=== PATIENT | female | born 1975 | race Hispanic/Latino ===

== ENCOUNTER 2018-04-25 18:00 | Emergency (ER) | payer SELFPAY ==
--- NOTE | 2018-04-25 19:34 | ER ---
Nurse's Notes [facility] Name: Jenae Martinez Age: 43 yrs Sex: Female : 1975 Arrival Date: 04/25/2018 Time: 18:04 Bed 10 Private MD: None, None Diagnosis: Acute tonsillitis Presentation: 04/25 18:30 Presenting complaint: Patient states: sore throat for 2 days with fever, headache and la1 patchy exudate. Transition of care: patient was not received from another setting of care. Onset of symptoms was April 25, 2018. 18:30 Method Of Arrival: Ambulatory la1 18:32 Risk Assessment: Do you want to hurt yourself or someone else? Patient reports no la1 desire to harm self or others. Initial Sepsis Screen: Does the patient meet any 2 criteria? No. Patient's initial sepsis screen is negative. Does the patient have a suspected source of infection? No. Patient's initial sepsis screen is negative. Care prior to arrival: None. 18:32 Acuity: KACIE 4 la1 Historical: - Allergies: 18:30 No Known Allergies; la1 - PMHx: 18:30 Asthma; la1 - Immunization history:: Adult Immunizations up to date. - Social history:: Smoking status: Patient/guardian denies using tobacco. - Ebola Screening: : No symptoms or risks identified at this time. Screenin:11 Abuse screen: Denies threats or abuse. Nutritional screening: No deficits noted. la1 Tuberculosis screening: No symptoms or risk factors identified. Fall Risk None identified. Assessment: 19:11 General: Appears in no apparent distress. Behavior is calm, cooperative. Pain: la1 Complains of pain in sore throat. Neuro: Level of Consciousness is awake, alert, obeys commands, Oriented to person, place, time, situation. Cardiovascular: Capillary refill < 3 seconds Patient's skin is warm and dry. Respiratory: Airway is patent Respiratory effort is even, unlabored, Respiratory pattern is regular, symmetrical, Breath sounds are clear bilaterally. EENT: Throat is reddened has patchy exudate has enlarged tonsils bilaterally. Vital Signs: 18:30 BP 141 / 74; Pulse 74; Resp 16; Temp 97.8; Pulse Ox 98% on R/A; Weight 72.57 kg; Height la1 5 ft. 5 in. (165.10 cm); 18:30 Body Mass Index 26.63 (72.57 kg, 165.10 cm) la1 ED Course: 18:04 Patient arrived in ED. sb2 18:04 None, None is Private Physician. sb2 18:31 Arm band placed on right wrist. la1 18:32 Triage completed. la1 18:50 Jacquie Dyson FNP-C is [facility]. kb 18:50 Aditya Mclean MD is Attending Physician. kb 19:11 Patient has correct armband on for positive identification. la1 19:11 No provider procedures requiring assistance completed. Patient did not have IV access la1 during this emergency room visit. Administered Medications: 20:03 Drug: Augmentin 875 mg Route: PO; la1 20:03 Follow up: Response: Medication administered at discharge. la1 Outcome: 19:26 Discharge ordered by . kb 20:03 Discharged to home ambulatory. la1 20:03 Condition: stable 20:03 Discharge instructions given to patient, Instructed on discharge instructions, follow up and referral plans. medication usage, Demonstrated understanding of instructions, follow-up care, medications, Prescriptions given X 1. 20:03 Patient left the ED. la1 Signatures: Jacquie Dyson, Graeme Glass RN RN la1 Sofía Sullivan sb2
--- NOTE | 2018-04-25 19:34 | EDPHYS ---
Physician Documentation [facility] Name: Jenae Martinez Age: 43 yrs Sex: Female : 1975 Arrival Date: 04/25/2018 Time: 18:04 Bed 10 Private MD: None, None ED Physician Aditya Mclean HPI: 04/25 19:24 This 43 yrs old Female presents to ER via Ambulatory with complaints of Sore kb Throat, Headache. 19:24 The patient presents with sore throat. The patient describes throat pain as constant. kb Onset: The symptoms/episode began/occurred yesterday. Severity of symptoms: At their worst the symptoms were moderate, in the emergency department the symptoms are unchanged. Modifying factors: The symptoms are alleviated by nothing, the symptoms are aggravated by swallowing, Patient's oral intake status: good. Associated signs and symptoms: Pertinent positives: earache, fever, Sore throat. The patient has not experienced similar symptoms in the past. The patient has not recently seen a physician. Historical: - Allergies: 18:30 No Known Allergies; la1 - PMHx: 18:30 Asthma; la1 - Immunization history:: Adult Immunizations up to date. - Social history:: Smoking status: Patient/guardian denies using tobacco. - Ebola Screening: : No symptoms or risks identified at this time. ROS: 19:23 Neck: Negative for injury, pain, and swelling, Cardiovascular: Negative for chest pain, kb palpitations, and edema, Respiratory: Negative for shortness of breath, cough, wheezing, and pleuritic chest pain, Abdomen/GI: Negative for abdominal pain, nausea, vomiting, diarrhea, and constipation, MS/Extremity: Negative for injury and deformity, Skin: Negative for injury, rash, and discoloration, Neuro: Negative for headache, weakness, numbness, tingling, and seizure. 19:23 Constitutional: Positive for fever, malaise, Negative for body aches, chills, fatigue, poor PO intake, weight loss. 19:23 ENT: Positive for ear pain, sore throat. Exam: 19:23 Constitutional: This is a well developed, well nourished patient who is awake, alert, kb and in no acute distress. Head/Face: Normocephalic, atraumatic. Neck: Trachea midline, no thyromegaly or masses palpated, and no cervical lymphadenopathy. Supple, full range of motion without nuchal rigidity, or vertebral point tenderness. No Meningismus. Chest/axilla: Normal chest wall appearance and motion. Nontender with no deformity. No lesions are appreciated. Cardiovascular: Regular rate and rhythm with a normal S1 and S2. No gallops, murmurs, or rubs. Normal PMI, no JVD. No pulse deficits. Respiratory: Lungs have equal breath sounds bilaterally, clear to auscultation and percussion. No rales, rhonchi or wheezes noted. No increased work of breathing, no retractions or nasal flaring. Abdomen/GI: Soft, non-tender, with normal bowel sounds. No distension or tympany. No guarding or rebound. No evidence of tenderness throughout. Skin: Warm, dry with normal turgor. Normal color with no rashes, no lesions, and no evidence of cellulitis. MS/ Extremity: Pulses equal, no cyanosis. Neurovascular intact. Full, normal range of motion. Neuro: Awake and alert, GCS 15, oriented to person, place, time, and situation. Cranial nerves II-XII grossly intact. Motor strength 5/5 in all extremities. Sensory grossly intact. Cerebellar exam normal. Normal gait. 19:23 ENT: External ear(s): are unremarkable, Ear canal(s): are normal, TM's: are normal, Nose: is normal, Mouth: is normal, Posterior pharynx: Airway: normal, no evidence of obstruction, Tonsils: bilaterally enlarged, with erythema, with exudate, Uvula: normal, midline, swelling, that is moderate, erythema, that is moderate, that is marked, exudate, that is moderate. Vital Signs: 18:30 BP 141 / 74; Pulse 74; Resp 16; Temp 97.8; Pulse Ox 98% on R/A; Weight 72.57 kg; Height la1 5 ft. 5 in. (165.10 cm); 18:30 Body Mass Index 26.63 (72.57 kg, 165.10 cm) la1 MDM: 19:11 Patient medically screened. kb 19:22 Data reviewed: vital signs, nurses notes. Data interpreted: Pulse oximetry: on room air kb is 98 %. Interpretation: normal. Counseling: I had a detailed discussion with the patient and/or guardian regarding: the historical points, exam findings, and any diagnostic results supporting the discharge/admit diagnosis, lab results, the need for outpatient follow up, a family practitioner, to return to the emergency department if symptoms worsen or persist or if there are any questions or concerns that arise at home. 04/25 18:30 Order name: Strep la1 Administered Medications: 20:03 Drug: Augmentin 875 mg Route: PO; la1 20:03 Follow up: Response: Medication administered at discharge. la1 Disposition: 04/26 07:36 Co-signature as Attending Physician, Aditya Mclean MD I agree with the assessment and derick plan of care. Disposition: 04/25/18 19:26 Discharged to Home. Impression: Acute tonsillitis. - Condition is Stable. - Discharge Instructions: Tonsillitis, [id number]. - Prescriptions for Augmentin 875- 125 mg Oral Tablet - take 1 tablet by ORAL route every 12 hours for 10 days; 20 tablet. - Medication Reconciliation Form, Thank You Letter, Antibiotic Education, Prescription Opioid Use form. - Follow up: Emergency Department; When: As needed; Reason: Worsening of condition. Follow up: Private Physician; When: 2 - 3 days; Reason: Recheck today's complaints, Continuance of care, Re-evaluation by your physician. Signatures: Dispatcher [employer] EDJacquie Bagley, ADMINISTRATIVE LAW JUDGE-C ADMINISTRATIVE LAW JUDGE-Aditya Rivas MD MD cha Attema, Lee RN RN la1 Corrections: (The following items were deleted from the chart) 04/25 20:03 19:26 04/25/2018 19:26 Discharged to Home. Impression: Acute tonsillitis. Condition is la1 Stable. Forms are Medication Reconciliation Form, Thank You Letter, Antibiotic Education, Prescription Opioid Use. Follow up: Emergency Department; When: As needed; Reason: Worsening of condition. Follow up: Private Physician; When: 2 - 3 days; Reason: Recheck today's complaints, Continuance of care, Re-evaluation by your physician. kb
[2018-04-25] MEDS ORDERED: AMOX/K CLAV 875 MG TAB ONE (20:07)
== END 2018-04-25 20:03 | disposition home or self-care (01) ==
LOC: ER 18:00
DX: J03.90 Acute tonsillitis, unspecified (principal)
CPT/HCPCS: 87070; 87081; 99283